=== PATIENT | male | born 1995 | race Caucasian/White ===

== ENCOUNTER 2017-09-20 09:50 | Day surgery (SDC) | payer OTHER ==
[~2017-09-20 09:50] MED LIST: BUPIVACAINE 0.5% (SDV) 30 ML, morphine SULFATE (PF) 8 MG, EPINEPHrine 0.3 MG, KETOROLAC... IRR; CEFAZOLIN 2 GM/50 ML (PMX) 50 ML IVPB; GABAPENTIN 300 MG CAP PO; traMADol 50 MG TAB PO
[2017-09-20] MEDS: traMADol 50 MG TAB PO (11:00)
[2017-09-20] MEDS: GABAPENTIN 300 MG CAP PO (11:00)
[2017-09-20] MEDS ORDERED: CEFAZOLIN 1 GM INJ (11:42)
[2017-09-20] MEDS ORDERED: PROPOFOL 20 ML ×2 (11:42→12:15)
[2017-09-20] MEDS ORDERED: MIDAZOLAM 1 MG/ML 2 ML INJ (11:44)
[2017-09-20] MEDS ORDERED: FENTAnyl 50 MCG/ML VIAL ×2 (12:04→12:46)
[2017-09-20] MEDS ORDERED: LIDOCAINE 1% (MDV) 20 ML INJ (12:05)
[2017-09-20] MEDS ORDERED: ONDANSETRON 4 MG INJ (12:17)
[2017-09-20] MEDS ORDERED: FAMOTIDINE 20 MG INJ (12:17)
[2017-09-20] MEDS ORDERED: DEXAMETHASONE 4 MG/ML 1 ML INJ (12:17)
[2017-09-20] MEDS: BUPIVACAINE 0.5%/EPI (SDV) 30 ML INJ (13:08)
[2017-09-20] MEDS ORDERED: PROCHLORPERAZINE 10 MG INJ IV (14:00)
[2017-09-20] MEDS ORDERED: FENTAnyl 50 MCG/ML VIAL IV ×3 (14:00)
[2017-09-20] MEDS ORDERED: HYDROmorphONE (0.2 MG/ML) 10ML SYG IV ×2 (14:00)
[2017-09-20] MEDS ORDERED: DIPHENHYDRAMINE 50 MG INJ IV (14:00)
[2017-09-20] MEDS: MEPERIDINE 25 MG INJ IV (14:11)
[2017-09-20] MEDS: ONDANSETRON 4 MG INJ IV (14:12)
[2017-09-20] MEDS: HYDROmorphONE (0.2 MG/ML) 10ML SYG IV ×2 (14:28→14:40)
== END 2017-09-20 15:55 | disposition home or self-care (01) ==
LOC: SDS 09:50
DX: M25.851 Other specified joint disorders, right hip (principal); S73.191A Other sprain of right hip, initial encounter; X58.XXXA Exposure to other specified factors, initial encounter
CPT/HCPCS: 29916; 73530